=== PATIENT | male | born 1995 | race African-American/Black ===

== ENCOUNTER 2016-11-22 15:55 | Emergency (ER) | payer SELFPAY ==
[~2016-11-22] VITALS: Ht 177.8 cm; Wt 72.6 kg
[2016-11-22 16:00] VITALS: BP 124/83
--- NOTE | 2016-11-22 16:19 | PHYS DOC ---
Past Medical History Past Medical History: Asthma Past Surgical History: No Surgical History Alcohol Use: Occasionally Drug Use: Marijuana Adult General Chief Complaint Chief Complaint: ASTHMA HPI HPI Patient is a 21 year old male presents to the emergency department with a one- week history of asthma exacerbation. Patient reports a history of asthma but states he has not had issues for "a long time" and has no medications use at home. He denies headache, chest pain, shortness of breath. He does state that he is wheezing intermittently. He reports no fever. No abdominal pain. Review of Systems Review of Systems Constitutional: Denies fever or chills [] Eyes: Denies change in visual acuity, redness, or eye pain [] HENT: Denies nasal congestion or sore throat [] Respiratory: Cough, wheezing without shortness of breath Cardiovascular: No additional information not addressed in HPI [] GI: Denies abdominal pain, nausea, vomiting, bloody stools or diarrhea [] : Denies dysuria or hematuria [] Musculoskeletal: Denies back pain or joint pain [] Integument: Denies rash or skin lesions [] Neurologic: Denies headache, focal weakness or sensory changes [] Endocrine: Denies polyuria or polydipsia [] Current Medications Current Medications Current Medications Medications (Trade) Dose Ordered Sig/Neli Start Time Stop Time Status Last Admin Dose Admin Albuterol/ Ipratropium (Duoneb) 3 ml 1X ONCE 11/22/16 16:45 11/22/16 16:46 11/22/16 16:16 3 ML Allergies Allergies Allergies Coded Allergies Type Severity Reaction Last Updated Verified No Known Drug Allergies 01/29/16 No Physical Exam Physical Exam Constitutional: Well developed, well nourished, no acute distress, non-toxic appearance. [] HENT: Normocephalic, atraumatic, bilateral external ears normal, oropharynx moist, no oral exudates, nose normal. [] Neck: Normal range of motion, no tenderness, supple, no stridor. [] Cardiovascular:Heart rate regular rhythm, no murmur [] Lungs & Thorax: Breath sounds diminished, symmetrical chest wall movement with inspiration and expiration. Abdomen: Bowel sounds normal, soft, no tenderness, no masses, no pulsatile masses. [] Skin: Warm, dry, no erythema, no rash. [] Back: No tenderness, no CVA tenderness. [] Neurologic: Alert and oriented X 3 Psychologic: Affect normal, judgement normal, mood normal. [] Current Patient Data Vital Signs Vital Signs Date Time Temp Pulse Resp B/P (MAP) Pulse Ox O2 Delivery O2 Flow Rate FiO2 11/22/16 16:18 99 Room Air 11/22/16 16:00 98.7 87 20 98.7 EKG EKG [] Radiology/Procedures Radiology/Procedures [] Course & Med Decision Making Course & Med Decision Making Pertinent Labs and Imaging studies reviewed. (See chart for details) [][]Patient received a DuoNeb treatment. Symptoms resolved. No complaints. Breath sounds clear to auscultate throughout, saturation oxygen room air 100%. Dragon Disclaimer Dragon Disclaimer This electronic medical record was generated, in whole or in part, using a voice recognition dictation system. Departure Departure Impression: Primary Impression: Asthma Disposition: HOME, SELF-CARE Condition: STABLE Referrals: NO PCP (PCP) Patient Instructions: Asthma, Adult Additional Instructions: Soip-buq-pgyvdyn Luciana, Claritin or Zyrtec, medicine of your choice. Take as directed. Follow-up with a primary care provider in 3-5 days. Scripts Albuterol Sulfate (PROAIR HFA INHALER) 8.5 Gm Hfa.aer.ad 2 PUFF INH PRN Q6HRS Y for SHORTNESS OF BREATH, #1 INHALER 0 Refills Prov: CATHERINE ULLOA APRN 11/22/16 Fluticasone Propionate (FLOVENT 110MCG HFA) 12 Gm Aer.w.adap 2 PUFF IH BID, #1 INHALER 2 Refills Prov: CATHERINE ULLOA APRN 11/22/16 Montelukast Sodium (MONTELUKAST SODIUM TABLET) 10 Mg Tablet 1 TAB PO DAILY, #30 TAB 5 Refills Prov: CATHERINE ULLOA APRN 11/22/16 Problem Qualifiers Primary Impression: Asthma Asthma severity: mild intermittent Asthma complication type: with acute exacerbation Qualified Codes: J45.21 - Mild intermittent asthma with (acute) exacerbation CATHERINE ULLOA APRN Nov 22, 2016 16:19
[2016-11-22] MEDS ORDERED: FLUT12AE IH (16:43)
[2016-11-22] MEDS ORDERED: MONT10TA9 PO (16:43)
[2016-11-22] MEDS ORDERED: PROAIR HFA8.5 GM INH (16:43)
[2016-11-22] MEDS ORDERED: IPRATRPIUM/ALBUTEROL 0.5/2.5MG 3 ML NEBU. NEB ONE (16:45)
== END 2016-11-22 16:49 | disposition home or self-care (01) ==
LOC: ER 15:55
DX: J45.21 Mild intermittent asthma with (acute) exacerbation (principal)
CPT/HCPCS: 94640; 99283; J7620